=== PATIENT | male | born 1950 | race Caucasian/White ===

== ENCOUNTER 2017-03-16 19:16 | Emergency (ER) | payer SELFPAY ==
[~2017-03-16] VITALS: Ht 177.8 cm; Wt 74.8 kg
[2017-03-16 19:24] VITALS: BP 150/100
== END 2017-03-17 00:06 | disposition left against medical advice (07) ==
LOC: EDBD 19:18 → ER 19:18
DX: R40.4 Transient alteration of awareness (principal); R41.0 Disorientation, unspecified; Z53.21 Procedure and treatment not carried out due to patient leaving prior to being seen by health care provider
CPT/HCPCS: 93005